=== PATIENT | male | born 1965 | race Caucasian/White ===

== ENCOUNTER 2020-11-27 13:53 | Emergency (ER) | payer OTHER ==
[~2020-11-27] VITALS: Ht 177.8 cm; Wt 66.7 kg
[2020-11-27 13:59] VITALS: BP 157/86
--- NOTE | 2020-11-27 13:59 | NUR ---
PT TAKEN TO BED 4.
--- NOTE | 2020-11-27 14:23 | NUR ---
55/M PRESENTS TO ED FOR A WORK RELEASE NOTE. PT WAS SEEN HERE ON TUESDAY AND TRIED TO RETURN TO WORK AND WORK IS REQUESTING A RELEASE. PT HAS NO MEDICAL COMPLAINT AT THIS TIME.
[2020-11-27 15:24] VITALS: BP 157/86
--- NOTE | 2020-11-27 15:24 | NUR ---
Patient discharged with v/s stable. Written and verbal after care instructions given and explained. Patient verbalized understanding. Ambulatory with steady gait. All questions addressed prior to discharge. Advised to follow up with PMD. Patient given work noted from [employer]
== END 2020-11-27 15:24 | disposition home or self-care (01) ==
LOC: MED 13:53
DX: G43.909 Migraine, unspecified, not intractable, without status migrainosus (principal); F17.210 Nicotine dependence, cigarettes, uncomplicated
CPT/HCPCS: 99281